=== PATIENT | male | born 1935 | race Caucasian/White ===

== ENCOUNTER 2017-01-24 09:38 | Emergency (ER) | payer MEDICARE ==
[~2017-01-24] VITALS: Ht 162.6 cm; Wt 81.6 kg
[~2017-01-24 09:38] MED LIST: ALBU18HF IH; AMLO10TA2 PO; ASPI-630 PO; CRESTOR20 MG PO; METF500T4 PO; MULT-240 PO; NAPR500T4 PO; OMEG1CAP38 PO; RANI150C PO; TADA5TAB PO; TAMS0.4C2 PO; TELM40TA PO; ZOLP5TAB PO
[2017-01-24] MEDS ORDERED: LORazepam 2 MG/ML VIAL IV ONE (10:00)
[2017-01-24] MEDS ORDERED: ASPIRIN 325 MG TABLET PO ONE (10:00)
[2017-01-24] MEDS ORDERED: 0.9 % SODIUM CHLORIDE 10 ML DISP.SYRIN. IV PRN (10:00)
[2017-01-24] MEDS ORDERED: HYDROmorphone PF 1 MG/ML DISP.SYRIN IV/SQ PRN (10:00)
--- NOTE | 2017-01-24 10:00 | PHYS DOC ---
Past History Past Medical History: Diabetes, Hypertension, Lung Disease, DE, Other Past Surgical History: Other Smoking: Quit Greater Than 1 Year Alcohol Use: None Drug Use: None Adult General Chief Complaint Chief Complaint: Neck Pain HPI HPI He is a pleasant 81-year-old male with a history of hypertension, hyperlipidemia , cew-hndlvaz-szxbssjbi diabetes, lung cancer, and bladder cancer who presents with shoulder pain that began 4 days ago. This pain superior to the scapula with radiation to the left side of the neck. It is worse with range of motion and position. He specifically notes it's worse at night when he lays on it as pressure with his CPAP machine on. He becomes very uncomfortable whereas difficult for him to actually move and stay asleep. There is no numbness and tingling down the left arm, there is no weakness in the left arm, there is no shortness breath or other chest pain symptoms. He denies any nausea, vomiting, diarrhea, chills, cough, URI symptoms. Denies any direct trauma to the arm or shoulder. He is only concerned because his prior heart attacks involved pain area spotting anyone to ensure that he was not having another heart attack today. Patient denies any change in medications, travel outside the country or other PE risk factors besides cancer. Differential diagnosis for chest pain: Pericarditis, myocarditis, endocarditis, pneumothorax, pneumonia, aortic dissection, esophageal spasm, esophagitis, peptic ulcer disease, acute coronary syndrome, mediastinitis, Boerhaave syndrome , musculoskeletal chest wall pain, costochondritis, intercostal strain, rib fracture, pulmonary contusion, pneumonitis, pleural effusion, pericardial effusion, pericardial tamponode, and pleurisy. KG done on arrival time 10 AM 01/24/2017 demonstrates a heart rate of 57 there is a P-wave QRS width normal sinus rhythm with VT interval is 214 which is briskly AV block there is QS with a 94 which is normal, QTC is 386 which is also normal. As as a first-degree AV block patient is a Q-wave in the anterior leads of V1 and V2 which is ordered patient given his prior history. Nothing new no evidence of acute coronary ischemia at this time. Review of Systems Review of Systems Constitutional: Denies fever or chills [] Eyes: Denies change in visual acuity, redness, or eye pain [] HENT: Denies nasal congestion or sore throat [] Respiratory: Denies cough or shortness of breath [] Cardiovascular: No additional information not addressed in HPI [] GI: Denies abdominal pain, nausea, vomiting, bloody stools or diarrhea [] : Denies dysuria or hematuria [] Musculoskeletal: Denies back pain or joint pain as his main complaint is left shoulder pain which is reproducible on exam and increased with certain range of motion and direct pressure. Integument: Denies rash or skin lesions [] Neurologic: Denies headache, focal weakness or sensory changes [] Endocrine: Denies polyuria or polydipsia [] All other systems were reviewed and found to be within normal limits, except as documented in this note. Allergies Allergies Allergies Coded Allergies Type Severity Reaction Last Updated Verified Sulfa (Sulfonamide Antibiotics) Allergy Unknown 03/24/15 Yes Physical Exam Physical Exam Vital signs recorded chart patient noted to be hypertensive which is not new for patient. Constitutional: Well developed, well nourished, no acute distress, non-toxic appearance. [] HENT: Normocephalic, atraumatic, bilateral external ears normal, oropharynx moist, no oral exudates, nose normal. [] Eyes: PERRLA, EOMI, conjunctiva normal, no discharge. [] Neck: Normal range of motion, he has significant tenderness palpation over the trapezius muscle on the left as well as the rhomboid major and minor muscles of the mid back. There is marked tenderness to palpation and muscle spasm noted's. Portion of the scapula. [] Cardiovascular:Heart rate regular rhythm, no murmur [] Lungs & Thorax: Bilateral breath sounds clear to auscultation [] Abdomen: Bowel sounds normal, soft, no tenderness, no masses, no pulsatile masses. [] Skin: Warm, dry, no erythema, no rash. [] Back: Back tenderness noted on neck exam.] Extremities: No tenderness, no cyanosis, no clubbing, ROM intact, no edema. [] Neurologic: Alert and oriented X 3, normal motor function, normal sensory function, no focal deficits noted. [] Psychologic: He seems somewhat anxious but his judgment is normal.[] Current Patient Data Lab Results Laboratory Tests Test 01/24/17 10:05 White Blood Count 6.0 x10^3/uL (4.0-11.0) Red Blood Count 4.27 x10^6/uL (4.30-5.70) L Hemoglobin 13.5 g/dL (13.0-17.5) Hematocrit 38.2 % (39.0-53.0) L Mean Corpuscular Volume 89 fL (79-100) Mean Corpuscular Hemoglobin 32 pg (25-35) Mean Corpuscular Hemoglobin Concent 35 g/dL (31-37) Red Cell Distribution Width 13.0 % (11.5-14.5) Platelet Count 151 x10^3/uL (140-400) Neutrophils (%) (Auto) 70 % (31-73) Lymphocytes (%) (Auto) 16 % (24-48) L Monocytes (%) (Auto) 10 % (0-9) H Eosinophils (%) (Auto) 4 % (0-3) H Basophils (%) (Auto) 1 % (0-3) Neutrophils # (Auto) 4.2 x10^3uL (1.8-7.7) Lymphocytes # (Auto) 0.9 x10^3/uL (1.0-4.8) L Monocytes # (Auto) 0.6 x10^3/uL (0.0-1.1) Eosinophils # (Auto) 0.3 x10^3/uL (0.0-0.7) Basophils # (Auto) 0.0 x10^3/uL (0.0-0.2) EKG EKG [] Radiology/Procedures Radiology/Procedures [] [address] [place] [address] IMAGING REPORT Signed PATIENT: SAUMYA CHACON ACCOUNT: [id number] : 1935 LOCATION: ER AGE: 81 SEX: M EXAM STATUS: REG ER ORD. PHYSICIAN: CARLOS ALBERTO SELF MD REASON: pain in his left shoulder PROCEDURE: CHEST PA & LATERAL Chest, 2 views, 11/24/2016: History: Left shoulder pain Comparison is made to a study from 12/12/2011. The heart size and pulmonary vascularity are normal. There is calcific plaquing of the aorta. No pulmonary infiltrates are seen. There is no evidence of pleural fluid. IMPRESSION: No acute cardiopulmonary abnormality is detected. DICTATED AND SIGNED BY: KOMAL THOMPSON MD DATE: 01/24/17 1023 CC: YAHAIRA HEARD MD; CARLOS ALBERTO SELF MD ~ Course & Med Decision Making Course & Med Decision Making Pertinent Labs and Imaging studies reviewed. (See chart for details) he presents with shoulder pain and a history of cardiac disease. His pain is been ongoing for approximately 4 days intermittently. It is worse with certain position and movement as well as direct pressure over the shoulder. There is no numbness and tingling on physical exam or history this is not likely a cervical spine impingement syndrome as he has a negative Spurling's test, patient also has a negative test for rotator cuff injury. Patient will have an EKG, chest x- ray, appropriate cardiac workup completed as well given some muscle accidents and anti-inflammatories to help with his shoulder pain that is likely muscular skeletal nature. [] EKG and CBC are normal at this time time is now 10:29 am. Time is now 10:45 AM patient's troponin, lipase, CBC, LFTs are all normal his only abnormality is an elevated glucose of 172 and a slightly low sodium level 135. This patient is suffering from muscle social her pain and not a cardiac ischemic event. He'll be given precautions just within the next few days to ensure that he is improved. History: Considered based on history which is not suspicious, his age, his EKG and troponin which puts minus score of 2. He is low risk and may follow-up with his primary extension worker and outpatient evaluation. Highly suspicious 2 points moderately suspicious 1. slightly suspicious 0 point EKG: ST segment depression 2. nonspecific repolarization disturbance 1. normal 0 point Age: Greater than 65 2 points, 65-45 1., less than 45 years old 0 points Risk factors:> 3 risk factors 2 points, 1-2 risk factors one point, no risk factors 0 point Troponin: > 2 times normal 2 points, 1-2 times normal 1., normal limits 0 point Total score: Score % pts MACE/n MACE Policy 0-3 32% 1.9% 0.05% Discharge 4-6 51% 413/3136 13% 1.3% Observation Risk management 7-10 17% 518/1045 50% 2.8% Observation Treatment, CAGB Differential diagnosis for chest pain: Pericarditis, myocarditis, endocarditis, pneumothorax, pneumonia, aortic dissection, esophageal spasm, esophagitis, peptic ulcer disease, acute coronary syndrome, mediastinitis, Boerhaave syndrome , musculoskeletal chest wall pain, costochondritis, intercostal strain, rib fracture, pulmonary contusion, pneumonitis, pleural effusion, pericardial effusion, pericardial tamponode, and pleurisy. Was considered when the patient arrived. Given risk factors and history Dragon Disclaimer Dragon Disclaimer This electronic medical record was generated, in whole or in part, using a voice recognition dictation system. Departure Departure: Impression: Primary Impression: Shoulder pain Additional Impression: Neck muscle spasm Disposition: HOME, SELF-CARE Condition: STABLE Referrals: YAHAIRA HEARD MD (PCP) Patient Instructions: Shoulder Pain Additional Instructions: discharge: I've spoken with the patient and/or caregivers. I've explained the patient's condition, diagnosis and treatment plan based on information available to me at this time. I've answered the patient's and/or caregivers questions and addressed any concerns. The patient and/or caregivers have a good understanding the patient's diagnosis, condition and treatment plan as can be expected at this point. Vital signs have been stabilized. The patient's condition is stable for discharge from the emergency department. The patient will pursue further outpatient evaluation with her primary care provider or other designated consulting physician as outlined in the discharge instructions. Patient and/or caregivers are agreeable to this plan of care and follow-up instructions have been explained in detail. The patient and/or caregivers have received these instructions in written format and expressed understanding of these discharge instructions. The patient and her caregivers are aware that if any significant change in condition or worsening of symptoms should prompt him to immediately return to this of the closest emergency department. If an emergent department is not readily available I would encourage him to call 911. Scripts Diazepam (VALIUM) 5 Mg Tablet 5 MG PO TID Y for MUSCLE SPASMS for 5 Days, #15 TAB Please use one tablet every 8 hours as needed for muscle spasms. Do not drink alcohol or use other narcotics with this medication. Prov: CARLOS ALBERTO SELF MD 01/24/17 Naproxen (NAPROSYN) 500 Mg Tablet 1 TAB PO BID, #10 TAB 1 Refill Prov: CARLOS ALBERTO SELF MD 01/24/17 Problem Qualifiers CARLOS ALBERTO SELF MD Jan 24, 2017 10:00
--- NOTE | 2017-01-24 10:02 | EKG ---
[address] [address] Test Date: 2017-01-24 Test Time: 10:00:41 Pat Name: SAUMYA CHACON Department: Room: Gender: M Cardiopulmonary Physical Therapist: ALIX : 1935 Requested By: CARLOS ALBERTO SELF Order Number: [id number] Reading MD: Measurements Intervals [place] Rate: 57 P: 56 MA: 214 QRS: -12 QRSD: 94 T: 73 QT: 394 QTc: 386 Interpretive Statements SINUS RHYTHM LEFTWARD AXIS QRS(T) CONTOUR ABNORMALITY CONSIDER ANTEROLATERAL MYOCARDIAL DAMAGE POSSIBLY ABNORMAL ECG RI6.01 Unconfirmed report Compared to ECG 03/26/2015 12:14:22 Left-axis deviation now present Sinus bradycardia no longer present
[2017-01-24] MEDS ORDERED: KETOROLAC 30 MG/ML VIAL. IV ONE (10:15)
[2017-01-24 10:21] LABS: BASO % 1 % (0-3); EOS # 0.3 x10^3/uL (0.0-0.7); EOS % 4 % (0-3); HEMATOCRIT 38.2 % (39.0-53.0); HEMOGLOBIN 13.5 g/dL (13.0-17.5); LYMPH # 0.9 x10^3/uL (1.0-4.8); LYMPH % 16 % (24-48); MEAN CORPUSCULAR HEMOGLOBIN 32 pg (25-35); MEAN CORPUSCULAR HGB CONC 35 g/dL (31-37); MEAN CORPUSCULAR VOLUME 89 fL (79-100); MONO # 0.6 x10^3/uL (0.0-1.1); MONO % 10 % (0-9); NEUT # 4.2 x10^3uL (1.8-7.7); NEUT % 70 % (31-73); PLATELET COUNT 151 x10^3/uL (140-400); RED BLOOD COUNT 4.27 x10^6/uL (4.30-5.70)
--- NOTE | 2017-01-24 10:24 | RAD ---
Chest, 2 views, 11/24/2016: History: Left shoulder pain Comparison is made to a study from 12/12/2011. The heart size and pulmonary vascularity are normal. There is calcific plaquing of the aorta. No pulmonary infiltrates are seen. There is no evidence of pleural fluid. IMPRESSION: No acute cardiopulmonary abnormality is detected.
[2017-01-24] MEDS ORDERED: IV NORMAL SALINE 1,000ML 1,000 ML IV SCH (10:30)
[2017-01-24 10:43] LABS: ALBUMIN 3.7 g/dL (3.4-5.0); CALCIUM 8.9 mg/dL (8.5-10.1); CREATININE 0.8 mg/dL (0.7-1.3); DIRECT BILIRUBIN 0.2 mg/dL (0.0-0.2); GFR 93.3; MAGNESIUM 1.8 mg/dL (1.8-2.4); POTASSIUM 3.8 mmol/L (3.5-5.1); TOTAL BILIRUBIN 0.6 mg/dL (0.2-1.0); TOTAL PROTEIN 6.5 g/dL (6.4-8.2)
[2017-01-24] MEDS ORDERED: NAPR-683 PO (10:48)
[2017-01-24] MEDS ORDERED: DIAZ5TAB PO (10:48)
[2017-01-24 10:50] VITALS: BP 131/67
== END 2017-01-24 10:52 | disposition home or self-care (01) ==
LOC: ER 09:38
DX: M25.512 Pain in left shoulder (principal); M62.838 Other muscle spasm; M54.2 Cervicalgia; E11.9 Type 2 diabetes mellitus without complications; E78.5 Hyperlipidemia, unspecified; I10 Essential (primary) hypertension; I25.2 Old myocardial infarction; Z87.891 Personal history of nicotine dependence; Z88.2 Allergy status to sulfonamides
CPT/HCPCS: 36415; 71020; 80048; 80076; 82553; 83690; 83735; 83880; 84443; 84484; 85025; 93005; 96361; 96374; 96375; 99285; J1885; J2060; J7030

== ENCOUNTER → 2017-03-10 | Outpatient (CLI) | payer MEDICARE ==
[~2017-03-10] MED LIST changes: +DIAZ5TAB PO; +NAPR-683 PO
--- NOTE | 2017-03-10 08:46 | RAD ---
Abdominal aortic ultrasound, 03/10/2017: History: Aneurysm screening, diabetic Duplex evaluation of the abdominal aorta was performed including grayscale, color-flow and spectral Doppler analysis. There are mild scattered atherosclerotic plaques in the aorta and iliac arteries. The aorta measures approximately 2 cm in greatest diameter. There is no evidence of aneurysm. IMPRESSION: Aortic atherosclerosis without evidence of abdominal aortic aneurysm.
== END | disposition home or self-care (01) ==
LOC: US 07:42
PROVIDERS: ATTEND Family Medicine
DX: E11.65 Type 2 diabetes mellitus with hyperglycemia (principal); I70.0 Atherosclerosis of aorta
CPT/HCPCS: 76770

== ENCOUNTER → 2017-04-04 | Outpatient (CLI) | payer MEDICARE ==
[~2017-04-04] MED LIST changes: +NAPR-514 PO; -NAPR500T4 PO
--- NOTE | 2017-04-04 16:18 | RAD ---
CT of the chest without contrast, 04/04/2017: History: Lung nodule Noncontrast scans were obtained and compared to a study from 01/18/2016. A tiny tree-in-bud type opacity seen the anterolateral aspect of the right upper lobe on the previous study has regressed suggesting an inflammatory etiology. There is a 4-5 mm nonsolid pulmonary opacity in the lateral aspect of the right lower lobe as seen on image 164 of series #2. This appears to be unchanged. In the coronal plane it is somewhat elongated and is most likely a scar. There are several additional small peripheral linear opacities in both lung bases compatible with scarring and/or atelectasis. Calcified granulomata are noted in the right middle lobe and right upper lobe. Note new pulmonary mass or significant infiltrate is seen. There is moderate calcific plaquing of the thoracic aorta. Moderate scattered coronary calcifications are present. A trace amount of pericardial fluid is present anteriorly. There are calcified mediastinal and right hilar lymph nodes. No mediastinal adenopathy is evident. IMPRESSION: 1. Stable tiny parenchymal opacities as described above. 2. 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 3. Moderate calcific plaquing of aorta and coronary arteries. PQRS Compliance Statement: One or more of the following individualized dose reduction techniques were utilized for this examination: 1. Automated exposure control 2. Adjustment of the mA and/or kV according to patient size 3. Use of iterative reconstruction technique
== END | disposition home or self-care (01) ==
LOC: CT 12:54
PROVIDERS: ATTEND Internal Medicine Pulmonary Disease
DX: I25.10 Atherosclerotic heart disease of native coronary artery without angina pectoris (principal); I70.0 Atherosclerosis of aorta; R91.8 Other nonspecific abnormal finding of lung field
CPT/HCPCS: 71250

== ENCOUNTER → 2018-07-06 | Outpatient (CLI) | payer MEDICARE ==
[~2018-07-06] MED LIST changes: -ALBU18HF IH; +ALBU2.5V8 IH; -AMLO10TA2 PO; +AMLO10TA8 PO; +METF500T16 PO; -METF500T4 PO
--- NOTE | 2018-07-06 13:46 | RAD ---
EXAM: Lumbar spine, 3 views; left hip and pelvis, 3 views. HISTORY: Pain. COMPARISON: None. FINDINGS: Lumbar spine: 3 views of the lumbar spine are obtained. There is mild lumbar levoscoliosis centered at L3. There is right disc space narrowing with endplate remodeling at L3-L4 and left disc space narrowing with endplate remodeling at L4-L5. There is bilateral disc space narrowing and endplate remodeling at L5-S1. There is grade 1 anterolisthesis of L3 on L4 and mild retrolisthesis of L5 on S1. There is calcified atherosclerotic plaque involving the splenic artery. There is cholelithiasis. Left hip and pelvis: A frontal view of the pelvis and 2 views of the left hip are obtained. There is no fracture, dislocation or subluxation. There is decreased femoral head-neck offset, a finding which can be seen with chronic hip impingement. IMPRESSION: 1. No acute osseous finding. 2. Lumbar scoliosis and grade 1 anterolisthesis of L3 on L4. There is degenerative endplate remodeling with disc space narrowing at L3 on the right at L3-L4, left at L4-L5 and bilaterally at L5-S1. 3. Findings suggesting chronic hip impingement. Electronically signed by: Purvi Rice MD (07/06/2018 1:43 PM) [email or web address]
== END | disposition home or self-care (01) ==
LOC: RAD 12:42
PROVIDERS: ATTEND Family Medicine
DX: M41.86 Other forms of scoliosis, lumbar region (principal); M48.07 Spinal stenosis, lumbosacral region; K80.20 Calculus of gallbladder without cholecystitis without obstruction; I70.8 Atherosclerosis of other arteries
CPT/HCPCS: 72100; 73502

== ENCOUNTER → 2019-03-14 | Outpatient (CLI) | payer MEDICARE ==
--- NOTE | 2019-03-14 12:40 | RAD ---
CT CHEST WO CONTRAST Indication: Lung nodule follow-up Technique: Noncontrast CT imaging was performed of the chest, multiplanar reconstruction images submitted. One or more of the following individualized dose reduction techniques were utilized for this examination: 1. Automated exposure control 2. Adjustment of the mA and/or kV according to patient size 3. Use of iterative reconstruction technique. Comparison: 04/04/2017; January 02, 2015 Findings: There is persistent approximate 0.6-0.7 cm noncalcified right lower lobe pulmonary nodule image 57 series 2 likely very slightly larger than 2018 exam when measured about 0.5 to 0.6 cm, has grown since 2015 when measured about 0.2 to 0.3 cm. Small 0.2 cm right lower lobe nodule image 75 series 2 is stable. There is approximate 0.2 cm superior left lower lobe nodule axial image 43 series 2 which is similar. No new pulmonary nodularity is identified. There is no new pleural or pericardial effusion, pneumothorax, or lobar consolidation. Major airways are overall patent. There is again coronary calcification. Thoracic aortic caliber is within normal limits. No new significantly enlarged nodes are identified of the chest. IMPRESSION: 1. There is persistent right lower lobe nodule about 0.6 to 0.7 cm in size, somewhat larger than 2018 exam and also has grown since 2015 exam as described. Given the slight change with growth over time, continued shorter-term 6-12 month follow-up is advised as per revised Fleischner guidelines. A couple of other smaller nodules bilaterally are similar. 2. There is coronary calcification. Electronically signed by: Rohan Hdz MD (03/14/2019 12:37 PM) [email or web address]
== END | disposition home or self-care (01) ==
LOC: CT 11:22
PROVIDERS: ATTEND Internal Medicine Pulmonary Disease
DX: R91.8 Other nonspecific abnormal finding of lung field (principal); I25.10 Atherosclerotic heart disease of native coronary artery without angina pectoris
CPT/HCPCS: 71250